=== PATIENT | male | born 1965 | race African-American/Black ===

== ENCOUNTER 2021-05-07 16:20 | Emergency (ER) | payer OTHER, BC ==
[2021-05-07 16:50] VITALS: BP 141/89; PULSE 80; TEMP 97.5; BMI 33.9
[2021-05-07] MEDS ORDERED: LIDOCAINE 5% TOPICAL PATCH TP ONE (17:46)
[2021-05-07] MEDS ORDERED: KETOROLAC TROMETHAMINE 30 MG/1 ML VIAL IM ONE (17:46)
[2021-05-07] MEDS ORDERED: LIDOCAINE 5% TOPICAL PATCH ONE (18:09)
[2021-05-07] MEDS ORDERED: KETOROLAC TROMETHAMINE 30 MG/1 ML VIAL ONE (18:09)
[2021-05-07] MEDS ORDERED: LIDOCAINE PATCH REMOVAL MC SCH (22:00)
== END 2021-05-07 18:59 | disposition home or self-care (01) ==
LOC: JER 16:20
PROC: 3E0233Z Introduction of Anti-inflammatory into Muscle, Percutaneous Approach (ICD-10-PCS; principal; 2021-05-07)
DX: S89.92XA Unspecified injury of left lower leg, initial encounter (principal); X50.0XXA Overexertion from strenuous movement or load, initial encounter; Y92.89 Other specified places as the place of occurrence of the external cause
CPT/HCPCS: 73564-TC-LT-FY; 73590-TC-LT-FY; 99284-25